=== PATIENT | male | born 1950 | race Caucasian/White ===

== ENCOUNTER 2020-11-19 08:18 | Emergency (ER) | payer MEDICARE, OTHER ==
[~2020-11-19 08:18] MED LIST: BENTYL10 MG PO; METRONIDAZOLE500 MG PO; NORCO 5-325 TA1 EACH PO; ONDANSETRON ODT4 MG SL
[2020-11-19] MEDS ORDERED: NAPROXEN500 MG PO (10:00)
== END 2020-11-19 10:10 | disposition home or self-care (01) ==
LOC: FER 08:18
DX: M25.462 Effusion, left knee (principal); I10 Essential (primary) hypertension; Z88.2 Allergy status to sulfonamides; W55.82XA Struck by other mammals, initial encounter; Y92.009 Unspecified place in unspecified non-institutional (private) residence as the place of occurrence of the external cause
CPT/HCPCS: 73564; 73700; J3301